=== PATIENT | female | born 1975 | race Asian ===

== ENCOUNTER 2016-08-12 07:28 | Inpatient (IN) | payer OTHER ==
[~2016-08-12 07:28] MED LIST: Buffered Lidocaine 1% SYR 3ML* 3 ML/SYR SYRINGE INTRADERM ONE; Sodium Citrate/Citric Acid* 15 ML UDC PO ONE
[2016-08-12] MEDS ORDERED: VASOPRESSIN 20 UNITS/ML 1 ML VIAL ONE (07:36)
[2016-08-12] MEDS ORDERED: Sodium Citrate/Citric Acid* 15 ML UDC ONE (07:41)
[2016-08-12] MEDS ORDERED: ceFOXitin 2 GM IVPREMIX* 2 GM/50 ML BAG ONE (07:41)
[2016-08-12] MEDS ORDERED: Lidocaine 2% PF * 5 ML VIAL ONE (09:14)
[2016-08-12] MEDS ORDERED: Midazolam* 1 MG/ML 2 ML VIAL (2 MG) ONE (09:14)
[2016-08-12] MEDS ORDERED: Propofol* 10 MG/ML 20 ML BTL IV PUSH ONE (09:14)
[2016-08-12] MEDS ORDERED: Morphine PF AMP (0.5MG/ML)* 5 MG/10 ML AMP ONE (09:14)
[2016-08-12] MEDS ORDERED: fentaNYL* 50 MCG/ML 2 ML VIAL (100 MCG VIAL) IV PRN (09:59)
[2016-08-12] MEDS ORDERED: Ondansetron INJ* 2 MG/ML VIAL IV PRN ×2 (09:59→10:02)
[2016-08-12] MEDS ORDERED: Naloxone* 0.4 MG/ML 1 ML VIAL IV PRN (10:02)
[2016-08-12] MEDS ORDERED: oxyCODONE/Acetamin 5/325 MG* TAB PO PRN (10:02)
[2016-08-12] MEDS ORDERED: KETAMINE HCL* 50 MG/ML 10 ML VIAL ONE (10:10)
[2016-08-12] MEDS ORDERED: Ondansetron INJ* 2 MG/ML VIAL ONE (11:35)
[2016-08-12] MEDS ORDERED: oxyCODONE/Acetamin 5/325 MG* TAB ONE (13:46)
[2016-08-12] MEDS ORDERED: Metoclopramide IV* 5 MG/ML 2 ML VIAL IV PRN (14:17)
[2016-08-12] MEDS: Omeprazole CAP* 20 MG PO SCH ×2 (14:50→21:20)
[2016-08-12] MEDS: Nalbuphine* 20 MG/ML 1 ML VIAL IV PRN ×2 (15:09→21:18)
[2016-08-13 07:09] LABS: Hematocrit 37 % (35-47); Hemoglobin 12.3 g/dl (12.0-16.0); Mean Corpuscular HGB Conc 33 g/dl (31-36); Mean Corpuscular Hemoglobin 30 pg (27-31); Mean Corpuscular Volume 91 fL (80-97); Mean Platelet Volume 8 um3 (7.4-10.4); Red Cell Distribution Width 13 % (10.5-15); White Blood Count 16.5 10^3/ul (3.5-10.8)
[2016-08-13] MEDS: Omeprazole CAP* 20 MG PO SCH ×2 (08:01→20:17)
[2016-08-13] MEDS: oxyCODONE/Acetamin 5/325 MG* TAB PO PRN (17:56)
--- NOTE | 2016-08-14 00:40 | OP ---
DATE OF OPERATION: 08/12/16 - ROOM #334 DATE OF : 75 SURGEON: George Kamara MD GIFT SHOP CLERK: Tal Sandoval MD ANESTHESIOLOGIST: Guzman Cota DO ANESTHESIA: Spinal. PRE-OP DIAGNOSES: Intramural fibroids with secondary pelvic pain and pressure and urinary urgency secondary to fibroids. POST-OP DIAGNOSIS: OPERATIVE PROCEDURE: Abdominal myomectomy. ESTIMATED BLOOD LOSS: Less than 50 cc. SPECIMEN SENT TO PATHOLOGY: Uterine fibroids. FLUIDS: She received 1200 cc of IV crystalloid fluid. URINE OUTPUT: Clear, 500 cc. FINDINGS: Intraoperatively, the patient was noted to have normal adnexa bilaterally with normal ovaries and fallopian tubes, normal bowel and bladder. She was noted to have mid anterior intramural fibroid which was about 3 or 4 cm in diameter with another fibroid just above abutting the first fibroid about 3 cm in diameter. DESCRIPTION OF PROCEDURE: The patient was taken to the operating room where she was identified. She was placed on the operating table where a spinal anesthetic was obtained without difficulty. She was then placed in the supine position, prepped and draped in a normal sterile fashion. A Pfannenstiel skin incision was made with a knife and carried through the underlying layer of fascia. The fascia was then nicked in the midline and extended laterally with curved Givens scissors. The fascia was then grasped superiorly and inferiorly with Kendall clamps, dissected off sharply from the rectus muscle. The rectus muscle was in the midline bluntly. The peritoneum was identified, grasped with pickups, entered sharply with Metzenbaum scissors, and extended anteriorly, inferiorly sharply. At this point, we proceeded to place the patient in a slight Trendelenburg position and an Randy retractor was inserted into the patient's abdomen and moist laps were used to pack the bowel away from the pelvis. I then proceeded to inject a diluted vasopressin into the serosal surface covering the myoma. An incision was made after the injection of the vasopressin. This gave us good hemostasis and I was able to remove the fibroid by enucleating it with sharp and blunt dissection. The blood vessels that were feeding the fibroid were clamped with clamps and ligated with 0 Polysorb suture. The second fibroid, similarly vasopressin was injected on the serosal surface. Incision was then made over the site of injection. The fibroid was identified, grasped, and enucleated from the uterus using sharp and blunt dissection. The vessels feeding the fibroid were suture ligated with 0 Polysorb suture as well. There was good hemostasis noted. At this point, I proceeded to close the myometrial layer of the uterus using 0 Polysorb suture with interrupted figure-of-8 stitches. Once the myometrial layer was closed, serosal layer was closed with 2-0 Vicryl stitch using a baseball stitch technique. After the serosal layer was closed, Interceed was placed over the uterus. The pelvis was irrigated with normal saline. The irrigation fluid was removed after which we proceeded to remove all the sponges from the patient's abdomen as well as Randy retractor. There was good hemostasis noted. I proceeded then to close the peritoneum with 3-0 Polysorb suture in a running fashion. The fascia was closed with 0 Polysorb suture in a running fashion and the skin was closed with 4-0 Monocryl subcuticular stitch. The patient tolerated the procedure well. Sponge, lap, and needle counts were correct x2. She was then transferred to recovery room area in stable condition. CC: Tal Sandoval MD* [id number]/[facility] #: [id number] BORA
[2016-08-14] MEDS: Omeprazole CAP* 20 MG PO SCH (08:44)
[2016-08-14] MEDS ORDERED: Docusate CAP* 100 MG PO PRN (09:12)
[2016-08-14] MEDS ORDERED: Simethicone TAB* 80 MG TAB.CHEW PO PRN (09:13)
[2016-08-14] MEDS: oxyCODONE/Acetamin 5/325 MG* TAB PO PRN (13:22)
[2016-08-14 14:43] VITALS: BP 104/72
--- NOTE | 2016-08-20 12:39 | DS ---
DISCHARGE SUMMARY: DATE OF ADMISSION: 08/12/16 DATE OF DISCHARGE: 08/14/16 HOSPITAL COURSE: Mrs. Resendez is a 40-year-old lady who was admitted to the hospital on 08/12/16 with a diagnosis of symptomatic intramural fibroids. Complications from the fibroid consisted of secondary pelvic pain and pressure. On the day of her admission, she underwent an abdominal myomectomy without any incident and without any complications. She was transferred to the recovery room in a stable condition, and after that, she was transferred to the floor for overnight observation. On the surgical unit after the observation, the morning of 08/13/16, the patient had stable vital signs. She remained afebrile and she was tolerating a regular diet. She was ambulating and voiding without difficulty and passing flatus and her pain was well controlled with p.o. medications. At this point, the patient was deemed stable for discharge, so therefore she was discharged home to follow with my office in 1 week after her surgery. Please refer to the patient's discharge packet with on the discharge summary. [id number] #: [id number] MTDD
== END 2016-08-14 15:15 | disposition home or self-care (01) | DRG 743 ==
LOC: AA 07:28 → SSU 13:56
PROVIDERS: ADMIT Obstetrics & Gynecology; ATTEND Obstetrics & Gynecology
PROC: 0UB90ZZ Excision of Uterus, Open Approach (ICD-10-PCS; principal; 2016-08-12 09:00)
DX: D25.1 Intramural leiomyoma of uterus (principal); F32.9 Major depressive disorder, single episode, unspecified; G89.29 Other chronic pain; M54.5 Low back pain; R10.2 Pelvic and perineal pain; F41.9 Anxiety disorder, unspecified; G56.03 Carpal tunnel syndrome, bilateral upper limbs; R39.15 Urgency of urination; Z87.442 Personal history of urinary calculi; Z84.2 Family history of other diseases of the genitourinary system; Z83.79 Family history of other diseases of the digestive system; Z88.8 Allergy status to other drugs, medicaments and biological substances
CPT/HCPCS: 36415; 85025; 88305; A9270-GY; J0694; J2250; J2300; J2405; J2704